=== PATIENT | female | born 1975 ===

== ENCOUNTER → 2022-12-02 | Outpatient (CLI) | payer OTHER ==
[~2022-12-02] MED LIST: METHOCARBAMOL500 MG PO; VOLTAREN ARTHRI20 GM TOP
== END | disposition home or self-care (01) ==
LOC: SONOGRAMA 10:53
PROVIDERS: ATTEND Obstetrics & Gynecology
DX: R10.2 Pelvic and perineal pain (principal)

== ENCOUNTER 2023-12-22 09:10 | Outpatient (CLI) | payer OTHER ==
[~2023-12-22 09:10] MED LIST changes: +DICLOFENAC POTA50 MG PO; +NORFLEX100MG PO
== END 2023-12-22 09:14 | disposition home or self-care (01) ==
LOC: SONOGRAMA 09:10
PROVIDERS: ATTEND Obstetrics & Gynecology
DX: R10.2 Pelvic and perineal pain (principal)

== ENCOUNTER 2024-05-16 10:09 | Outpatient (CLI) | payer OTHER | END 2024-05-16 10:14 | disposition home or self-care (01) | LOC: SONOGRAMA 10:09 | DX: R10.2 Pelvic and perineal pain (principal) ==